=== PATIENT | female | born 2000 | race Caucasian/White ===

== ENCOUNTER 2023-11-18 17:10 | Emergency (ER) | payer OTHER ==
[2023-11-18 17:21] VITALS: BP 121/73; PULSE 81; RESP 18; TEMP 97.6; BMI 27.8
== END 2023-11-18 18:10 | disposition home or self-care (01) ==
LOC: JERFT 17:10
DX: S93.401A Sprain of unspecified ligament of right ankle, initial encounter (principal); M25.561 Pain in right knee; W01.0XXA Fall on same level from slipping, tripping and stumbling without subsequent striking against object, initial encounter
CPT/HCPCS: 73562-TC-RT-FY; 73610-TC-RT-FY; 99284-25